=== PATIENT | female | born 1985 | race Hispanic/Latino ===

== ENCOUNTER → 2024-07-10 | Outpatient (REF) | payer BC ==
[~2024-07-10] MED LIST: ALPRAZOLAM; ALPRAZOLAM0.5 MG PO; ALPRAZOLAM1 MG PO; BACTRIM DS TAB1 EACH PO; BUDEPRION XL150 MG PO; GADOBENATE DIMEGLUMINE 1 ML IV ONE; IBUPROFEN200 MG PO; MIDAZOLAM HCL 2 MG/2 ML VIAL ONE; WELLBUTRIN SR150 MG PO
== END ==
LOC: MRI 12:42
PROVIDERS: ATTEND Psychiatry & Neurology Neurology
DX: G37.9 Demyelinating disease of central nervous system, unspecified (principal)
CPT/HCPCS: 70553; 72156; 72157; A9577; J2250